=== PATIENT | female | born 1985 | race Caucasian/White ===

== ENCOUNTER 2021-07-20 15:00 | Emergency (ER) | payer OTHER ==
[~2021-07-20] VITALS: Ht 182.9 cm; Wt 79.5 kg
[2021-07-20 16:53] VITALS: BP 128/64; PULSE 66; TEMP 97.3
== END 2021-07-20 16:56 | disposition home or self-care (01) ==
LOC: COL.ER 15:00
DX: S86.011A Strain of right Achilles tendon, initial encounter (principal); X50.1XXA Overexertion from prolonged static or awkward postures, initial encounter; Y93.67 Activity, basketball